=== PATIENT | male | born 1985 | race Caucasian/White ===

== ENCOUNTER → 2022-08-03 | Outpatient (REF) ==
[~2022-08-03] MED LIST: AMBI5TAB; ATARAX OR; BENA25CA2 PO; CELE40TA OR; EFFE150C; EFFE75CA75 OR; FLOM0.4C39 PO; HYDR25TA8; IBUP-1022 PO; KEFL500C17 PO; KETO30IN5 PO; MIRT-62 PO; OXYBPOW PO; PROT1TAB2 OR; SERO400T4 PO; TRAZ50TA OR; VARE1TA; VENL75CA PO; VENL75TA2; ZOLO50TA PO; no home medications
== END ==
LOC: M LAB 14:29
PROVIDERS: ATTEND Nurse Practitioner Adult Health
DX: Z00.00 Encounter for general adult medical examination without abnormal findings (principal)

== ENCOUNTER 2022-09-28 03:55 | Emergency (ER) | payer OTHER ==
[2022-09-28] MEDS ORDERED: SUBO8MIS SL (04:10)
[2022-09-28] MEDS ORDERED: ONDANSETRON 4MG 2ML VIAL IV ONE (07:25)
[2022-09-28] MEDS ORDERED: BUPRENORPHINE/NALOXONE 8-2MG SUBLINGUAL TABLET(SUBOXONE) SL STA (07:25)
[2022-09-28] MEDS ORDERED: NS 1,000 ML IV ONE ×2 (07:25→10:35)
[2022-09-28 07:48] LABS: BASO % 0.2 % (0.0-1.0); EOS % 0.2 % (0.0-3.0); HEMATOCRIT 44.1 % (42.0-52.0); HEMOGLOBIN 15.3 g/dl (13.5-17.5); LYMPH % 16.1 % (24.0-44.0); MEAN CORPUSCULAR HEMOGLOBIN 29.6 pg (27.0-33.0); MEAN CORPUSCULAR HGB CONC 34.7 g/dl (32.0-36.5); MEAN CORPUSCULAR VOLUME 85.3 fl (80.0-96.0); MONO # 0.8 10^3/uL (0.0-0.8); MONO % 6.6 % (2.0-8.0); NEUTROPHILS # 9.7 10^3/uL (1.5-8.5); NEUTROPHILS % 76.5 % (36.0-66.0); PLATELET COUNT, AUTOMATED 345 10^3/uL (150-450); RED BLOOD COUNT 5.17 10^6/uL (4.30-6.10); WHITE BLOOD COUNT 12.7 10^3/uL (4.0-10.0)
[2022-09-28 08:17] LABS: LIPASE 29 U/L (12-53)
[2022-09-28 08:41] LABS: ALBUMIN 4.5 G/DL (3.2-5.2); ALKALINE PHOSPHATASE 88 U/L (46-116); ALT/SGPT 50 U/L (7.0-40); AST/SGOT 32 U/L (<34); BILIRUBIN,DIRECT 0.2 MG/DL (<0.4); BILIRUBIN,TOTAL 0.8 MG/DL (0.3-1.2); BLOOD UREA NITROGEN 20 MG/DL (9-23); CALCIUM LEVEL 9.8 MG/DL (8.5-10.1); CARBON DIOXIDE LEVEL 21 MMOL/L (20-31); CHLORIDE LEVEL 106 MMOL/L (98-107); CREATININE FOR GFR 0.82 MG/DL (0.70-1.30); GLOMERULAR FILTRATION RATE > 60.0 (>60); GLUCOSE, FASTING 112 MG/DL (60-100); POTASSIUM SERUM 4.1 MMOL/L (3.5-5.1); SODIUM LEVEL 139 MMOL/L (136-145); TOTAL PROTEIN 7.6 G/DL (5.7-8.2)
[2022-09-28] MEDS ORDERED: ENTER DRUG NAME HERE (PATIENT'S OWN MED) PO ONE (09:35)
[2022-09-28] MEDS ORDERED: SUBOXONE FILM SL ONE (11:00)
[2022-09-28 11:09] LABS: AMPHETAMINES LEVEL URINE NEGATIVE (NEGATIVE); BARBITURATES URINE NEGATIVE (NEGATIVE); BENZODIAZEPINES URINE NEGATIVE (NEGATIVE); COCAINE METABOLITE URINE NEGATIVE (NEGATIVE); METHADONE URINE NEGATIVE (NEGATIVE); OPIATES URINE NEGATIVE (NEGATIVE); PHENCYCLIDINE URINE NEGATIVE (NEGATIVE)
[2022-09-28 11:10] LABS: CANNABINOIDS URINE POSITIVE (NEGATIVE)
[2022-09-28] MEDS ORDERED: ONDA4TAB6 PO (13:24)
[2022-09-28 13:58] VITALS: BP 121/60
== END 2022-09-28 14:00 | disposition home or self-care (01) ==
LOC: EDBD 03:55 → M ED 03:55
DX: R11.2 Nausea with vomiting, unspecified (principal); F12.90 Cannabis use, unspecified, uncomplicated; Z88.7 Allergy status to serum and vaccine
CPT/HCPCS: 80048; 80076; 80307; 83690; 85025; 96374; 99285; J2405

== ENCOUNTER 2023-09-03 12:47 | Emergency (ER) | payer OTHER ==
[~2023-09-03] VITALS: Ht 167.6 cm; Wt 73.4 kg
[~2023-09-03 12:47] MED LIST changes: -MIRT-62 PO; +MIRT-88 PO; +ONDA4TAB6 PO; +SUBO8MIS SL
[2023-09-03] MEDS ORDERED: HYDR-3363 (13:03)
[2023-09-03] MEDS ORDERED: PANT40TA29 (13:03)
[2023-09-03] MEDS ORDERED: QUET100T2 (13:03)
[2023-09-03 14:29] LABS: BASO % 0.1 % (0.0-1.0); EOS % 0.1 % (0.0-3.0); HEMATOCRIT 43.7 % (42.0-52.0); HEMOGLOBIN 14.9 g/dl (13.5-17.5); LYMPH # 1.8 10^3/uL (1.5-5.0); LYMPH % 24.9 % (24.0-44.0); MEAN CORPUSCULAR HEMOGLOBIN 29.6 pg (27.0-33.0); MEAN CORPUSCULAR HGB CONC 34.1 g/dl (32.0-36.5); MEAN CORPUSCULAR VOLUME 86.7 fl (80.0-96.0); MONO # 0.4 10^3/uL (0.0-0.8); MONO % 5.6 % (2.0-8.0); NEUTROPHILS # 4.9 10^3/uL (1.5-8.5); PLATELET COUNT, AUTOMATED 394 10^3/uL (150-450); RED BLOOD COUNT 5.04 10^6/uL (4.30-6.10); WHITE BLOOD COUNT 7.1 10^3/uL (4.0-10.0)
[2023-09-03 14:57] LABS: LIPASE 41 U/L (12-53)
[2023-09-03 14:59] LABS: ALBUMIN 4.4 G/DL (3.2-5.2); ALKALINE PHOSPHATASE 92 U/L (46-116); ALT/SGPT 21 U/L (7.0-40); AST/SGOT 11 U/L (<34); BILIRUBIN,DIRECT 0.3 MG/DL (<0.4); BILIRUBIN,TOTAL 0.7 MG/DL (0.3-1.2); BLOOD UREA NITROGEN 12 MG/DL (9-23); CALCIUM LEVEL 9.9 MG/DL (8.5-10.1); CARBON DIOXIDE LEVEL 25 MMOL/L (20-31); CHLORIDE LEVEL 112 MMOL/L (98-107); CREATININE FOR GFR 0.93 MG/DL (0.70-1.30); GLOMERULAR FILTRATION RATE > 60.0 (>60); GLUCOSE, FASTING 97 MG/DL (60-100); POTASSIUM SERUM 3.7 MMOL/L (3.5-5.1); SODIUM LEVEL 144 MMOL/L (136-145)
[2023-09-03] MEDS: ONDANSETRON 4MG TAB PO ONE (18:41)
[2023-09-03] MEDS: DICYCLOMINE 10 MG CAP PO ONE (18:41)
[2023-09-03] MEDS ORDERED: PROM25TA12 PO (20:23)
[2023-09-03] MEDS ORDERED: DICY-61 PO (20:23)
[2023-09-03 20:44] VITALS: BP 127/79; TEMP 97.7; O2SAT 98
[2023-09-04] MEDS ORDERED: METR-265 PO (10:18)
== END 2023-09-03 20:45 | disposition home or self-care (01) ==
LOC: M ED 12:47
DX: R10.9 Unspecified abdominal pain (principal); R11.0 Nausea; N20.0 Calculus of kidney; Z88.7 Allergy status to serum and vaccine; Z79.899 Other long term (current) drug therapy

== ENCOUNTER 2023-10-07 04:53 | Emergency (ER) | payer OTHER ==
[~2023-10-07] VITALS: Ht 167.6 cm; Wt 73.8 kg
[~2023-10-07 04:53] MED LIST changes: +DICY-61 PO; +HYDR-3363; +METR-265 PO; +PANT40TA29; +PROM25TA12 PO; +QUET100T2
[2023-10-07 05:31] LABS: BASO % 0.1 % (0.0-1.0); EOS % 0.4 % (0.0-3.0); HEMATOCRIT 41.2 % (42.0-52.0); HEMOGLOBIN 14.3 g/dl (13.5-17.5); LYMPH # 2.6 10^3/uL (1.5-5.0); LYMPH % 30.8 % (24.0-44.0); MEAN CORPUSCULAR HEMOGLOBIN 30.2 pg (27.0-33.0); MEAN CORPUSCULAR HGB CONC 34.7 g/dl (32.0-36.5); MEAN CORPUSCULAR VOLUME 86.9 fl (80.0-96.0); MONO # 0.7 10^3/uL (0.0-0.8); MONO % 8.2 % (2.0-8.0); NEUTROPHILS # 5.1 10^3/uL (1.5-8.5); NEUTROPHILS % 60.3 % (36.0-66.0); PLATELET COUNT, AUTOMATED 332 10^3/uL (150-450); RED BLOOD COUNT 4.74 10^6/uL (4.30-6.10); WHITE BLOOD COUNT 8.4 10^3/uL (4.0-10.0)
[2023-10-07] MEDS: NS 1,000 ML IV ONE (05:36)
[2023-10-07 05:48] LABS: LIPASE 54 U/L (12-53)
[2023-10-07 05:50] LABS: ALBUMIN 3.7 G/DL (3.2-5.2); ALKALINE PHOSPHATASE 79 U/L (46-116); ALT/SGPT 19 U/L (7.0-40); AST/SGOT 13 U/L (<34); BILIRUBIN,DIRECT 0.1 MG/DL (<0.4); BILIRUBIN,TOTAL 0.3 MG/DL (0.3-1.2); BLOOD UREA NITROGEN 11 MG/DL (9-23); CALCIUM LEVEL 9.2 MG/DL (8.5-10.1); CARBON DIOXIDE LEVEL 22 MMOL/L (20-31); CHLORIDE LEVEL 107 MMOL/L (98-107); CREATININE FOR GFR 0.88 MG/DL (0.70-1.30); GLOMERULAR FILTRATION RATE > 60.0 (>60); GLUCOSE, FASTING 97 MG/DL (60-100); POTASSIUM SERUM 3.7 MMOL/L (3.5-5.1); SODIUM LEVEL 138 MMOL/L (136-145); TOTAL PROTEIN 6.3 G/DL (5.7-8.2)
[2023-10-07] MEDS: KETOROLAC 30 MG/ML 1ML VIAL IV ONE (06:27)
[2023-10-07] MEDS: ONDANSETRON 4MG 2ML VIAL IV ONE (06:27)
[2023-10-07] MEDS ORDERED: FLOM0.4C39 PO (07:25)
[2023-10-07] MEDS ORDERED: KETO10TAB PO (07:25)
[2023-10-07] MEDS ORDERED: PROM25TA12 PO (07:25)
[2023-10-07] MEDS: TAMSULOSIN 0.4 MG CAP PO ONE (07:43)
[2023-10-07 08:07] VITALS: BP 117/66; TEMP 97.2; O2SAT 99
== END 2023-10-07 08:10 | disposition home or self-care (01) ==
LOC: M ED 04:53
DX: N20.1 Calculus of ureter (principal); F12.10 Cannabis abuse, uncomplicated; Z88.7 Allergy status to serum and vaccine; Z79.899 Other long term (current) drug therapy
CPT/HCPCS: 74176; 80048; 80076; 81001; 83690; 85025; 96374; 99284; J1885; J2405

== ENCOUNTER → 2023-11-02 | Outpatient (REF) | payer OTHER ==
[~2023-11-02] MED LIST changes: +HYDR-3363 PO; +KETO10TAB PO
[2023-11-02 20:15] LABS: Trichomonas vaginalis (AMP) NOT DETECTED (NEGATIVE)
[2023-11-02 20:39] LABS: GC DNA AMPLIFICATION NEGATIVE (NEGATIVE)
== END ==
LOC: M LAB REF 16:10
PROVIDERS: ATTEND Physician Assistant
DX: Z11.9 Encounter for screening for infectious and parasitic diseases, unspecified (principal)

== ENCOUNTER → 2023-11-02 | Outpatient (REF) | payer OTHER ==
[2023-11-02 18:05] LABS: ALBUMIN 4.1 G/DL (3.2-5.2); ALKALINE PHOSPHATASE 88 U/L (46-116); ALT/SGPT 26 U/L (7.0-40); AST/SGOT 21 U/L (<34); BILIRUBIN,TOTAL 0.6 MG/DL (0.3-1.2); BLOOD UREA NITROGEN 10 MG/DL (9-23); CALCIUM LEVEL 9.4 MG/DL (8.5-10.1); CARBON DIOXIDE LEVEL 26 MMOL/L (20-31); CHLORIDE LEVEL 107 MMOL/L (98-107); CHOLESTEROL LEVEL 155 MG/DL (<200); CREATININE FOR GFR 0.86 MG/DL (0.70-1.30); GLOMERULAR FILTRATION RATE > 60.0 (>60); GLUCOSE, FASTING 84 MG/DL (60-100); HDL CHOLESTEROL 44.2 MG/DL (>40); LDL CHOLESTEROL 87.6 MG/DL (<100); NON-HDL-C 110.8 MG/DL; POTASSIUM SERUM 4.6 MMOL/L (3.5-5.1); SODIUM LEVEL 141 MMOL/L (136-145); TOTAL PROTEIN 6.7 G/DL (5.7-8.2); TRIGLYCERIDES LEVEL 116 MG/DL (<150)
[2023-11-02 18:08] LABS: THYROID STIMULATING HORMONE 1.265 uIU/ML (0.55-4.78)
[2023-11-02 18:09] LABS: TOTAL 25(OH) VITAMIN D 23.4 NG/ML (20.0-100.0)
== END ==
LOC: M LAB REF 16:33
PROVIDERS: ATTEND Physician Assistant
DX: Z11.9 Encounter for screening for infectious and parasitic diseases, unspecified (principal); E55.9 Vitamin D deficiency, unspecified; Z13.220 Encounter for screening for lipoid disorders; Z13.29 Encounter for screening for other suspected endocrine disorder; N20.0 Calculus of kidney

== ENCOUNTER → 2023-11-06 | Outpatient (CLI) | payer OTHER ==
[2023-11-06 15:21] LABS: APPEARANCE, URINE CLEAR (CLEAR); BACTERIA, URINE AUTO NEGATIVE (NEGATIVE); BILIRUBIN, URINE AUTO NEGATIVE (NEGATIVE); BLOOD, URINE BLOOD NEGATIVE (NEGATIVE); CALCIUM OXALATE CRYSTALS SMALL; COLOR, URINE YELLOW (YELLOW); GLUCOSE, URINE (UA) AUTO NEGATIVE (NEGATIVE); KETONE, URINE AUTO NEGATIVE (NEGATIVE); LEUKOCYTE ESTERASE, URINE AUTO NEGATIVE (NEGATIVE); MUCUS, URINE SMALL (NEGATIVE); NITRITE, URINE AUTO NEGATIVE (NEGATIVE); PROTEIN, URINE AUTO NEGATIVE (NEGATIVE); RBC, URINE AUTO 1 /HPF (0-3); SPECIFIC GRAVITY URINE AUTO 1.018 (1.002-1.035); SQUAMOUS EPITHELIAL CELL UR AU 0 /HPF (0-6); WBC, URINE AUTO 2 /HPF (0-3)
== END ==
LOC: M RAD 14:39
PROVIDERS: ATTEND Nurse Practitioner Family
DX: Z01.818 Encounter for other preprocedural examination (principal); N20.0 Calculus of kidney

== ENCOUNTER 2023-11-15 07:15 | Day surgery (SDC) | payer OTHER ==
[~2023-11-15] VITALS: Ht 167.6 cm; Wt 71.5 kg
[~2023-11-15 07:15] MED LIST changes: +MIDAZOLAM INJ 2MG/2ML VIAL As Ordered ONE; +fentaNYL 100 MCG/2 ML INJECTION As Ordered ONE; +propofoL 200 MG/20 ML VIAL As Ordered ONE; +propofoL 500 MG/50 ML VIAL As Ordered ONE
[2023-11-15] MEDS ORDERED: LR 1,000 ML IV SCH (07:55)
[2023-11-15] MEDS ORDERED: SERO1TAB2 PO (08:09)
[2023-11-15] MEDS ORDERED: SERO1TAB PO (08:09)
[2023-11-15] MEDS: ceFAZolin SOD 2 GM in IV 1 EA IV ONE (09:37)
[2023-11-15] MEDS ORDERED: ACETAMINOPHEN 1000MG 100ML IV BAG As Ordered ONE (09:40)
[2023-11-15] MEDS ORDERED: FLOM0.4C39 PO (09:46)
[2023-11-15 10:20] VITALS: BP 108/68; TEMP 97.2; O2SAT 95
== END 2023-11-15 11:15 | disposition home or self-care (01) ==
LOC: M SDC 07:15
PROVIDERS: ATTEND Urology
DX: N20.0 Calculus of kidney (principal)
CPT/HCPCS: 50590; 74018; J0131; J0690; J2250

== ENCOUNTER → 2023-11-26 | Outpatient (CLI) | payer OTHER ==
[~2023-11-26] MED LIST changes: -MIDAZOLAM INJ 2MG/2ML VIAL As Ordered ONE; +ONDA-282 PO; -ONDA4TAB6 PO; +SERO1TAB PO; +SERO1TAB2 PO; -fentaNYL 100 MCG/2 ML INJECTION As Ordered ONE; -propofoL 200 MG/20 ML VIAL As Ordered ONE; -propofoL 500 MG/50 ML VIAL As Ordered ONE
== END ==
LOC: M RAD 11:59
PROVIDERS: ATTEND Nurse Practitioner Family
DX: Z01.818 Encounter for other preprocedural examination (principal)